=== PATIENT | female | born 1955 | race Caucasian/White ===

== ENCOUNTER → 2021-02-07 | Day surgery (SDC) | payer OTHER ==
[~2021-02-07] VITALS: Ht 162.6 cm; Wt 73.0 kg
[~2021-02-07] MED LIST: ACETAMINOPHEN500 M1 PO; COLACE100 MG PO; CRESTOR20 MG PO; LIPITOR40 MG PO; METFORMIN HCL500 MG PO; MOTRIN600 MG PO; NEURONTIN300 MG PO; OXY-IR 5MG5 MG PO; PROZAC20 MG PO; WELLBUTRIN100 MG PO
== END | disposition home or self-care (01) ==
LOC: FAS 11:08
DX: Z12.11 Encounter for screening for malignant neoplasm of colon (principal); K63.89 Other specified diseases of intestine; E11.9 Type 2 diabetes mellitus without complications; I10 Essential (primary) hypertension; J43.9 Emphysema, unspecified; K21.9 Gastro-esophageal reflux disease without esophagitis; F41.9 Anxiety disorder, unspecified; E78.5 Hyperlipidemia, unspecified; Z90.49 Acquired absence of other specified parts of digestive tract; Z87.891 Personal history of nicotine dependence; Z79.84 Long term (current) use of oral hypoglycemic drugs; Z79.899 Other long term (current) drug therapy
CPT/HCPCS: J2250; J2704; J7120